=== PATIENT | male | born 1985 | race American Indian/Alaskan Native ===

== ENCOUNTER 2019-11-09 06:20 | Emergency (ER) | payer SELFPAY ==
[2019-11-09 06:25] VITALS: BP 128/88
[2019-11-09] MEDS ORDERED: DOCUSATE SODIUM 100 MG/10 ML ORAL LIQD PO ONE (08:20)
--- NOTE | 2019-11-09 08:21 | Emergency Department Report ---
ED ENT HPI - General Chief complaint: Earache Stated complaint: EARACHE Time Seen by Provider: 11/09/19 07:09 Source: patient Mode of arrival: Ambulatory Limitations: No Limitations - History of Present Illness Initial comments: This is a 33-year-old -[place] male who presents to the emergency room with left ear pain and muffled hearing for 1 week. Patient states he tried to clean out his ear with a Q-tip with worsening symptoms. Patient states his left ear feel like something is stuck in there and the sound is like he is under water. He denies drainage, fever, tinnitus, or dizziness. MD complaint: ear pain (left ear) Onset/Timin -: week(s) Location: L ear Severity: moderate Severity scale (0 -10): 6 Quality: aching Consistency: intermittent Improves with: none Worsens with: none Associated Symptoms: denies: fever, tinnitus, discharge from ear - Related Data Previous Rx's Medication Instructions Recorded Last Taken Type Albuterol *Only Ed* [Proventil 2.5 mg IH Q3HR PRN #120 nebu 04/10/15 Unknown Rx 0.5% NEBS] Albuterol INH(or & Nicu Only) 1 puff INHALATION PRN PRN #1 inha 04/10/15 Unknown Rx [ProAir HFA Inhaler] Ipratropium/Albuterol Sulfate 1 ampul IH Q6HRT #120 ampul.neb 04/10/15 Unknown Rx [DUONEB *Not for PRN Use*] predniSONE [Deltasone] 20 mg PO QDAY #30 tablet 04/10/15 Unknown Rx Carbamide Peroxide 6.5% [Ear Wax 5 drops OT BID #1 bottle 11/09/19 Unknown Rx Drops] Allergies Allergy/AdvReac Type Severity Reaction Status Date / Time No Known Allergies Allergy Verified 11/09/19 06:23 ED Dental HPI - General Chief complaint: Earache Stated complaint: EARACHE Time Seen by Provider: 11/09/19 07:09 Source: patient Mode of arrival: Ambulatory Limitations: No Limitations - Related Data Previous Rx's Medication Instructions Recorded Last Taken Type Albuterol *Only Ed* [Proventil 2.5 mg IH Q3HR PRN #120 nebu 04/10/15 Unknown Rx 0.5% NEBS] Albuterol INH(or & Nicu Only) 1 puff INHALATION PRN PRN #1 inha 04/10/15 Unknown Rx [ProAir HFA Inhaler] Ipratropium/Albuterol Sulfate 1 ampul IH Q6HRT #120 ampul.neb 04/10/15 Unknown Rx [DUONEB *Not for PRN Use*] predniSONE [Deltasone] 20 mg PO QDAY #30 tablet 04/10/15 Unknown Rx Carbamide Peroxide 6.5% [Ear Wax 5 drops OT BID #1 bottle 11/09/19 Unknown Rx Drops] Allergies Allergy/AdvReac Type Severity Reaction Status Date / Time No Known Allergies Allergy Verified 11/09/19 06:23 ED Review of Systems ROS: Stated complaint: EARACHE Other details as noted in HPI Constitutional: denies: chills, fever ENT: ear pain (left ear). denies: throat pain Respiratory: denies: cough, shortness of breath, wheezing Cardiovascular: denies: chest pain, palpitations Gastrointestinal: denies: abdominal pain, nausea, diarrhea Skin: denies: rash, lesions Neurological: denies: headache, weakness, paresthesias Psychiatric: denies: anxiety, depression ED Past Medical Hx - Past Medical History Previous Medical History?: Yes Hx Asthma: Yes - Surgical History Past Surgical History?: No - Social History Smoking Status: Never Smoker - Medications Home Medications: Home Medications Medication Instructions Recorded Confirmed Last Taken Type Albuterol *Only Ed* [Proventil 2.5 mg IH Q3HR PRN #120 nebu 04/10/15 Unknown Rx 0.5% NEBS] Albuterol INH(or & Nicu Only) 1 puff INHALATION PRN PRN #1 inha 04/10/15 Unknown Rx [ProAir HFA Inhaler] Ipratropium/Albuterol Sulfate 1 ampul IH Q6HRT #120 ampul.neb 04/10/15 Unknown Rx [DUONEB *Not for PRN Use*] predniSONE [Deltasone] 20 mg PO QDAY #30 tablet 04/10/15 Unknown Rx Carbamide Peroxide 6.5% [Ear Wax 5 drops OT BID #1 bottle 11/09/19 Unknown Rx Drops] ED Physical Exam - General Limitations: No Limitations General appearance: alert, in no apparent distress - Eye Eye exam: Present: normal appearance - ENT ENT exam: Present: mucous membranes moist, normal external ear exam (left cerumen impaction). Absent: TM's normal bilaterally (left TM not visualized, right TM perry, no erythema or bulge) - Respiratory Respiratory exam: Present: normal lung sounds bilaterally. Absent: respiratory distress - Cardiovascular Cardiovascular Exam: Present: regular rate, normal rhythm. Absent: systolic murmur, diastolic murmur, rubs, gallop - Extremities Exam Extremities exam: Present: normal inspection - Neurological Exam Neurological exam: Present: alert, oriented X3, normal gait - Psychiatric Psychiatric exam: Present: normal affect, normal mood - Skin Skin exam: Present: warm, dry, intact, normal color. Absent: rash ED Course Vital Signs 11/09/19 06:23 Temperature 98.1 F Pulse Rate 97 H Respiratory 18 Rate Blood Pressure 128/88 O2 Sat by Pulse 94 Oximetry ED Medical Decision Making - Medical Decision Making This is a 33-year-old male who presents to the emergency room with left ear pain and muffled hearing for 1 week. Past medical history of asthma. Vitals are stable inpatient in no acute distress. Exam and history most consistent with Left ear cerumen impaction. There is a low suspicion at this time for mastoiditis, malignant otitis externa, herpes, retained foreign body. Ear lavage of left ear with normal saline and Colace. Patient denies pain on reevaluation. Cerumen completely removed from left ear. No signs of infection. Start debrox. Given care instructions on ear wax removal. Discharge. If symptoms worsen or persist for 48-72 follow-up with the primary care doctor. Cautious return precautions discussed w/ full understanding. Critical care attestation.: If time is entered above; I have spent that time in minutes in the direct care of this critically ill patient, excluding procedure time. ED Disposition Clinical Impression: Otalgia of left ear Cerumen impaction Qualifiers: Laterality: left Qualified Code(s): H61.22 - Impacted cerumen, left ear Hearing loss due to cerumen impaction Qualifiers: Laterality: left Qualified Code(s): H61.22 - Impacted cerumen, left ear Disposition: DC-01 TO HOME OR SELFCARE Is pt being admited?: No Condition: Stable Instructions: Cerumen Impaction (ED) Additional Instructions: Don't use cotton-tip applicators to clean the ears. Apply a few drops of debrox, mineral oil, olive oil, or saline solution into ear(s) nightly for a few nights to soften the wax. Debrox is one of the over the counter wax removal solutions and there are kits if natural solutions don't work. Follow-up with your auditor supervisor. Prescriptions: Carbamide Peroxide 6.5% [Ear Wax Drops] 5 drops OT BID #1 bottle Referrals: [facility] [Outside] - 3-5 Days [facility] [Outside] - 3-5 Days [facility] [Outside] - 3-5 Days Forms: Work/School Release Form(ED) Time of Disposition: 08:38
== END 2019-11-09 08:54 | disposition home or self-care (01) ==
LOC: ED 06:20
DX: H92.02 Otalgia, left ear (principal); H61.22 Impacted cerumen, left ear; J45.909 Unspecified asthma, uncomplicated; Z79.899 Other long term (current) drug therapy
CPT/HCPCS: 99282